=== PATIENT | female | born 1995 | race Caucasian/White ===

== ENCOUNTER 2017-11-24 16:10 | Emergency (ER) | payer BC ==
[2017-11-24 16:20] VITALS: BP 120/71; PULSE 92; RESP 18; TEMP 98.2
[2017-11-24] MEDS ORDERED: AMOXICILLIN 875 MG TAB PO STA (17:02)
--- NOTE | 2017-11-24 17:05 | ED ---
General Adult HPI - General Chief complaint: ENT Stated complaint: Ear pain Time Seen by Provider: 11/24/17 16:38 Source: patient, RN notes reviewed Mode of arrival: ambulatory Limitations: no limitations - History of Present Illness Initial comments: 22-year-old female presents to the emergency department for a chief complaint of right ear pain times one day. Patient states she woke up today and started to have pain in her ear. Patient states the pain has been consistent. Patient states she has some decreased hearing and hears "echoes." Patient denies a history of ear infections. Patient states she developed a cold yesterday and has a cough. She denies fevers or chills at home. patient denies history of asthma. Patient has no other complaints at this time including shortness of breath, chest pain, abdominal pain, nausea or vomiting, headache, or visual changes. - Related Data Previous Rx's Medication Instructions Recorded Amoxicillin 875 mg PO Q12HR #20 tablet 11/24/17 Amoxicillin/Potassium Clav 1 tab PO Q12HR #20 tab 11/24/17 [Augmentin 875-125 Tablet] Allergies Allergy/AdvReac Type Severity Reaction Status Date / Time No Known Allergies Allergy Verified 11/24/17 16:29 Review of Systems ROS Statement: Those systems with pertinent positive or pertinent negative responses have been documented in the HPI. ROS Other: All systems not noted in ROS Statement are negative. Past Medical History Past Medical History: No Reported History History of Any Multi-Drug Resistant Organisms: None Reported Past Surgical History: No Surgical Hx Reported Past Psychological History: No Psychological Hx Reported Smoking Status: Current every day smoker Past Alcohol Use History: None Reported Past Drug Use History: None Reported General Exam Limitations: no limitations General appearance: alert, in no apparent distress Head exam: Present: atraumatic, normocephalic, normal inspection Eye exam: Present: normal appearance, PERRL, EOMI. Absent: scleral icterus, conjunctival injection, periorbital swelling ENT exam: Present: normal oropharynx (Uvula midline, no tonsillar exudates noted bilaterally), mucous membranes moist, normal external ear exam (No swelling noted within the ear canal. No pain on percussion of the mastoid process.). Absent: TM's normal bilaterally (Erythematous bulging right tympanic membrane with vesicles noted on surface) Neck exam: Present: normal inspection, full ROM. Absent: tenderness, meningismus, lymphadenopathy Respiratory exam: Present: normal lung sounds bilaterally. Absent: respiratory distress, wheezes, rales, rhonchi, stridor Cardiovascular Exam: Present: regular rate, normal rhythm, normal heart sounds. Absent: systolic murmur, diastolic murmur, rubs, gallop, clicks GI/Abdominal exam: Present: soft, normal bowel sounds. Absent: distended, tenderness, guarding, rebound, rigid Neurological exam: Present: alert, oriented X3, CN II-XII intact Psychiatric exam: Present: normal affect, normal mood Course Vital Signs 11/24/17 16:16 Temperature 98.2 F Pulse Rate 92 Respiratory 18 Rate Blood Pressure 120/71 O2 Sat by Pulse 99 Oximetry Medical Decision Making - Medical Decision Making 22-year-old female process to the emergency department for a chief complaint of right ear pain times one day. Patient states she woke up with the pain. Patient states she feels as if she has "echo" hearing. Patient states she also has a mild cough that started yesterday as well as congestion. Patient denies any fevers or chills. Patient denies any pain behind the ear. On exam patient does have an erythematous right eardrum with evidence of bullous myringitis. No tenderness of the mastoid process. Patient will be treated with Augmentin she is to take Motrin and Tylenol for pain. X-ray was negative for pneumonia. She is to follow up with primary care in 1-2 days. Patient aware to return to the emergency Department if she has any worsening symptoms. Disposition Clinical Impression: Otitis media Disposition: HOME SELF-CARE Condition: Good Instructions: Ear Infection (ED) Additional Instructions: Please take antibiotic as directed. Please follow-up with primary care in 1-2 days. If symptoms worsen or cough increases return to the emergency department. Prescriptions: Amoxicillin 875 mg PO Q12HR #20 tablet Is patient prescribed a controlled substance at d/c from ED?: No Referrals: Mati Lewis DO [Primary Care Provider] - 1-2 days Time of Disposition: 18:00
--- NOTE | 2017-11-24 17:20 | XR ---
EXAMINATION TYPE: XR chest 2V DATE OF EXAM: 11/24/2017 COMPARISON: NONE HISTORY: Cough TECHNIQUE: Frontal and lateral views of the chest are obtained. FINDINGS: Heart and mediastinum are normal. Lungs are clear. Diaphragm is normal. Bony thorax appear s normal. IMPRESSION: Normal chest
== END 2017-11-24 18:07 | disposition home or self-care (01) ==
LOC: EC 16:10
DX: H66.91 Otitis media, unspecified, right ear (principal); R05 Cough; F17.200 Nicotine dependence, unspecified, uncomplicated
CPT/HCPCS: 71046; 99283